=== PATIENT | female | born 1990 ===

== ENCOUNTER 2016-09-21 16:39 | Emergency (ER) | payer OTHER ==
[2016-09-21 16:40] VITALS: BMI 22.3
[2016-09-21 16:45] VITALS: BP 121/80; PULSE 91; RESP 16; TEMP 98.3; O2SAT 100
[2016-09-21] MEDS ORDERED: Tmp-Smz 800 mg-160 mg DS Tab PO STA (17:20)
[2016-09-21] MEDS ORDERED: Bacitracin 500 Units/gm Oint Foilpak UD TOP ONE (17:20)
[2016-09-21] MEDS ORDERED: Tetanus/Diphtheria Toxoids 0.5 ml Syringe IM ONE (17:20)
[2016-09-21] MEDS ORDERED: Naproxen 550 mg Tab PO STA (17:20)
[2016-09-21] MEDS ORDERED: Naproxen 550 mg Tab PO ONE (17:30)
[2016-09-21] MEDS ORDERED: Bacitracin 500 Units/gm Oint Foilpak UD ONE (17:30)
[2016-09-21] MEDS ORDERED: Tmp-Smz 800 mg-160 mg DS Tab ONE (17:30)
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
== END 2016-09-21 18:08 | disposition home or self-care (01) ==
LOC: C.ER 16:39
DX: S01.411A Laceration without foreign body of right cheek and temporomandibular area, initial encounter (principal); Y04.0XXA Assault by unarmed brawl or fight, initial encounter; Y92.9 Unspecified place or not applicable